=== PATIENT | male | born 1965 | race American Indian/Alaskan Native ===

== ENCOUNTER 2021-10-17 13:50 | Emergency (ER) | payer OTHER ==
--- NOTE | 2021-10-17 21:59 | Cat Scan Report ---
CT HEAD WITHOUT CONTRAST INDICATION: headache TECHNIQUE: All CT scans at this location are performed using CT dose reduction for ALARA by means of automated exposure control. COMPARISON: None available. FINDINGS: BRAIN: No hemorrhage or mass effect are seen. No evidence of acute infarction is noted. Moderate patc hy white matter hypodensities are seen bilaterally. No significant atrophy. ORBITS: Normal as visualized. SOFT TISSUES OF HEAD: Normal. CALVARIUM: Normal. VISUALIZED PARANASAL SINUSES AND MASTOID AIR CELLS: Minimal left axillary mucosal thickening. No air- fluid level. ADDITIONAL FINDINGS: None. IMPRESSION: 1. No definite acute intracranial abnormality. 2. Moderate patchy white matter hypodensities as above. Though in a pattern often seen with microvasc ular changes, this extends would be unusual at the patient's age. A process such as multiple sclerosi s cannot be excluded and clinical correlation is suggested. MR may be helpful. Signer Name: Demetrius Kaufman MD Signed: 10/17/2021 9:55 PM Workstation Name: [id number]
--- NOTE | 2021-10-17 23:01 | Emergency Department Report ---
ED Headache HPI - General Chief Complaint: Headache Stated Complaint: HEADACHE Time Seen by Provider: 10/17/21 21:26 Source: patient - History of Present Illness Timing/Duration: other (3 days) Quality: moderate Head Injury Location: parietal Recent Head Trauma: frequent headaches Modifying Factors: improves with: movement Associated Symptoms: denies symptoms. denies: fever/chills, flushing, nasal congestion, nasal drainage, seizures, stiff neck, weakness Allergies/Adverse Reactions: Allergies No Known Allergies Allergy (Verified 10/17/21 13:53) Home Medications: Ambulatory Orders Butalb/Acetaminophen/Caffeine [Fioricet 50-300-40 mg CAP] 1 cap PO Q8HR PRN #20 cap 10/17/21 ED Review of Systems ROS: Stated complaint: HEADACHE Other details as noted in HPI Comment: All other systems reviewed and negative ED Past Medical Hx - Medications Home Medications: Home Medications Medication Instructions Recorded Confirmed Last Taken Type Butalb/Acetaminophen/Caffeine 1 cap PO Q8HR PRN #20 cap 10/17/21 Unknown Rx [Fioricet 50-300-40 mg CAP] ED Physical Exam - General Limitations: No Limitations General appearance: alert, in no apparent distress - Head Head exam: Present: atraumatic, normocephalic, normal inspection - Eye Eye exam: Present: normal appearance, PERRL, EOMI, nystagmus Pupils: Present: normal accommodation - ENT ENT exam: Present: normal exam, normal orophraynx, mucous membranes moist, TM's normal bilaterally - Neck Neck exam: Present: normal inspection - Respiratory Respiratory exam: Present: normal lung sounds bilaterally. Absent: respiratory distress - Cardiovascular Cardiovascular Exam: Present: regular rate, normal rhythm. Absent: systolic murmur, diastolic murmur, rubs, gallop - GI/Abdominal GI/Abdominal exam: Present: soft, normal bowel sounds - Rectal Rectal exam: Present: deferred - Extremities Exam Extremities exam: Present: normal inspection - Back Exam Back exam: Present: normal inspection - Neurological Exam Neurological exam: Present: alert, oriented X3 - Psychiatric Psychiatric exam: Present: normal affect, normal mood - Skin Skin exam: Present: warm, dry, intact, normal color. Absent: rash ED Course Vital Signs 10/17/21 13:51 Temperature 97.4 F L Pulse Rate 104 H Respiratory 18 Rate Blood Pressure 139/80 [Right] O2 Sat by Pulse 99 Oximetry ED Medical Decision Making - Radiology Data Radiology results: report reviewed [facility] [address] [place] [address] Cat Scan Report Signed Patient: WERNER IVAN MR#: [id number] : 1965 Acct:[id number] Age/Sex: 55 / M ADM Date: 10/17/21 Loc: ED Attending Dr: Ordering Physician: MADELEINE BRADY Date of Service: 10/17/21 Procedure(s): CT head/brain wo con Accession Number(s): [id number] cc: MADELEINE BRADY CT HEAD WITHOUT CONTRAST INDICATION: headache TECHNIQUE: All CT scans at this location are performed using CT dose reduction for ALARA by means of automated exposure control. COMPARISON: None available. FINDINGS: BRAIN: No hemorrhage or mass effect are seen. No evidence of acute infarction is noted. Moderate patchy white matter hypodensities are seen bilaterally. No significant atrophy. ORBITS: Normal as visualized. SOFT TISSUES OF HEAD: Normal. CALVARIUM: Normal. VISUALIZED PARANASAL SINUSES AND MASTOID AIR CELLS: Minimal left axillary mucosal thickening. No air-fluid level. ADDITIONAL FINDINGS: None. IMPRESSION: 1. No definite acute intracranial abnormality. 2. Moderate patchy white matter hypodensities as above. Though in a pattern often seen with microvascular changes, this extends would be unusual at the patient's age. A process such as multiple sclerosis cannot be excluded and clinical correlation is suggested. MR may be helpful. Signer Name: Demetrius Kaufman MD Signed: 10/17/2021 9:55 PM Workstation Name: [id number] Transcribed By: GJ Dictated By: Demetrius Kaufman MD Electronically Authenticated By: Demetrius Kaufman MD Signed Date/Time: 10/17/212154 DD/ 50 TD/TT: - Medical Decision Making This patient presents with a headache most consistent with migraine. Differential diagnosis includes migraine versus tension type headache. No headache red flags. Neurologic exam without evidence of meningismus, focal neurologic findings.Based on the patient's history and physical there is very low clinical suspicion for significant intracranial pathology. The headache was NOT sudden onset, NOT maximal at onset, there are NO neurologic findings, the patient does NOT have a fever, the patient does NOT have any jaw claudication, the patient does NOT endorse a clotting disorder, patient DENIES any trauma or eye pain and the headache is NOT associated with dizziness or ataxia. Presentation not consistent with acute intracranial bleed to include SAH (lack of risk factors, headache history). Presentation not consistent with acute IMPOSER infection to include meningitis or brain abscess, Temporal arteritis unlikely, as is acute angle closure glaucoma given history and physical findings. Presentation not consistent with other acute, emergent causes of headache at this time. Plan to treat symptomatically with pain medication. No indication for imaging/LP at this time. Also multiple sclerosis given the lesions found on CT scan Plan: pain medication, CT brain suspicion for multiple sclerosis, serial reassessment Critical care attestation.: If time is entered above; I have spent that time in minutes in the direct care of this critically ill patient, excluding procedure time. ED Disposition Clinical Impression: Headache Disposition: 01 HOME / SELF CARE / HOMELESS Is pt being admited?: No Does the pt Need Aspirin: No Condition: Stable Instructions: Cluster Headache, General Headache Without Cause, Spinal Headache, Sinus Headache, Form - Headache Record, Migraine Headache, [id number], Migraine Headache, Tension Headache, Adult, Multiple Sclerosis Additional Instructions: You have been evaluated in the emergency department today for headache. Your evaluation did not show evidence of medical conditions requiring emergent intervention at this time, and your pain improved with medication. Be sure to follow-up with your neurologist or primary care provider so they can further evaluate your headaches with a likely MRI due to the lesions which was suggestive of multiple sclerosis We recommend that you take Motrin and Tylenol as needed for your pain. If needed you can alternate these medications so that you take 1 every 3 hours. To be sure to follow-up with your primary care provider within 2 days for Return to emergency department if you experience worsening uncontrolled pain, vision changes, recurrent vomiting, difficulty with normal activities, abnormal behavior, difficulty walking, numbness, weakness, or any other concerning symptoms. Prescriptions: Butalb/Acetaminophen/Caffeine [Fioricet 50-300-40 mg CAP] 1 cap PO Q8HR PRN #20 cap PRN Reason: headache
[2021-10-18 00:16] VITALS: BP 132/76
== END 2021-10-18 00:16 | disposition home or self-care (01) ==
LOC: ED 13:50
DX: R51.9 Headache, unspecified (principal)
CPT/HCPCS: 70450; 99283